=== PATIENT | male | born 1960 | race Caucasian/White ===

== ENCOUNTER → 2017-04-26 11:51 | Outpatient (CLI) | payer MEDICAID ==
[2015-11-25 11:24] VITALS: BMI 40.8
[~2017-04-26 11:51] MED LIST: GEODON80 MG PO; HCTZ25 MG PO; NORVASC10 MG PO; TRAZODONE HCL50 MG PO; ZESTRIL40 MG PO; ZOCOR10 MG PO
== END ==
LOC: D.LABREF 11:51
DX: R31.9 Hematuria, unspecified (principal)

== ENCOUNTER 2017-05-24 03:07 | Emergency (ER) | payer MEDICAID ==
[2015-11-25 11:24] VITALS: BMI 40.8
== END 2017-05-25 03:30 | disposition home or self-care (01) ==
LOC: D.ER 03:07
DX: S46.912A Strain of unspecified muscle, fascia and tendon at shoulder and upper arm level, left arm, initial encounter (principal); X58.XXXA Exposure to other specified factors, initial encounter; Y93.89 Activity, other specified; Y92.89 Other specified places as the place of occurrence of the external cause; F17.200 Nicotine dependence, unspecified, uncomplicated; I10 Essential (primary) hypertension

== ENCOUNTER 2017-07-26 05:54 | Day surgery (SDC) | payer MEDICAID ==
[~2017-07-26 05:54] MED LIST changes: +CYCLOBENZAPRINE10 MG PO
[2017-07-26 07:36] LABS: HEMATOCRIT 49.1 % (42.0-54.0); HEMOGLOBIN 17.6 g/dL (13.5-17.5); MCH 33.5 pg (26.0-34.0); MCHC 35.8 g/dL (31.0-37.0); MCV 93.3 fL (80.0-100.0); MEAN PLATELET VOLUME 9.8 fL (7.4-10.4); RBC 5.26 10x6/uL (4.20-6.10); RDW 12.6 % (11.5-14.5); WBC 8.1 10x3/uL (4.8-10.8)
[2017-07-26 07:37] LABS: CALC OSMOLALITY 277 mosm/kg (275-300); CARBON DIOXIDE 27.3 mmol/L (21.0-32.0); CHLORIDE - SERUM 104 mmol/L (98-107); CREATININE - SERUM 0.7 mg/dL (0.6-1.3); GLUCOSE 121 mg/dL (74-106); POTASSIUM - SERUM 3.7 mmol/L (3.5-5.1); SODIUM 139 mmol/L (136-145); UREA NITROGEN 10 mg/dL (7-18); eGFR NON AFRICAN AMERICAN > 90 mL/min (90-120)
[2017-07-26 07:43] VITALS: BP 142/85; BMI 40.8
--- NOTE | 2017-07-26 11:59 | OP ---
PATIENT NAME: PRIYA MILNER MEDICAL RECORD: [id number] :60 LOCATION:D.OPS ADMISSION DATE: SURGEON: BUBBA EID MD DATE OF OPERATION: 07/26/2017 SURGEON: Bubba Eid MD ANESTHESIA: MAC by Modesto Bui CRNA. PREOPERATIVE DIAGNOSIS: Microscopic hematuria. POSTOPERATIVE DIAGNOSIS: Obstructive BPH causing microscopic hematuria. PROCEDURE: Cystoscopy. FINDINGS: Obstructive BPH with trilobar hyperplasia. There is a large median lobe infiltrating into the trigone of the bladder. Trabeculated bladder with no bladder tumors. Single ureteral orifices bilaterally. CLINICAL HISTORY: This is a 56-year-old male, who is a smoker, 1 pack per day since age 37. He was discovered to have microscopic hematuria by Dr. Bryan Harris. He had a workup including a CT scan of the abdomen and pelvis, which was normal. Urine cytology was benign. He comes now to have cystoscopy. He is not allergic to any medications and he was given Ancef 1 gram firestop/containment worker to the OR. DESCRIPTION OF PROCEDURE: The patient was given IV sedation. He was placed in dorsal lithotomy position and prepped and draped. A 17-Mauritian cystoscope was used. We initially used a 30-degree lens to get into the bladder. The visualization with 30-degree lens was rather poor as the lens itself was defective. We therefore switched to the 70-degree lens. He has quite significant vascularity in the trigone of the bladder. No tumors were seen. Single ureteral orifices were seen on each side. Going back, he has quite significant BPH with obstruction. No urethral lesions were seen. I will get the patient started on finasteride and tamsulosin. I will see him in followup in 1 month to see how is tolerating the medication. TRANSINT:[id number] Voice Confirmation ID: [id number] DOCUMENT ID: [id number] BUBBA EID MD at 1159 CC: [id number] DICTATION DATE: 07/26/17 1039 MAINTENANCE DEPARTMENT MANAGER: 07/26/17 1136 [facility] 07/26/17 [place] [id number] [place] [id number]
== END 2017-07-26 11:30 | disposition home or self-care (01) ==
LOC: D.OPS 05:54 → D.PAN 08:15 → D.OPS 08:30
PROVIDERS: Anesthesiology
DX: R31.29 Other microscopic hematuria (principal); N40.0 Benign prostatic hyperplasia without lower urinary tract symptoms; F17.200 Nicotine dependence, unspecified, uncomplicated; I10 Essential (primary) hypertension; Z01.812 Encounter for preprocedural laboratory examination

== ENCOUNTER 2017-12-08 05:00 | Emergency (ER) | payer MEDICAID | END 2017-12-08 06:32 | disposition home or self-care (01) | LOC: D.ER 05:00 | DX: M79.671 Pain in right foot (principal); I10 Essential (primary) hypertension ==

== ENCOUNTER 2018-06-06 09:54 | Emergency (ER) | payer MEDICAID ==
[~2018-06-06] VITALS: Ht 177.8 cm; Wt 121.8 kg
[2018-06-06 09:59] VITALS: Ht 177.8 cm; Wt 121.8 kg
[2018-06-06] MEDS ORDERED: EC-NAPROSYN500 MG PO (10:44)
[2018-06-06 10:58] VITALS: BP 122/068
== END 2018-06-06 11:00 | disposition home or self-care (01) ==
LOC: D.ER 09:54
DX: S83.91XA Sprain of unspecified site of right knee, initial encounter (principal); X50.1XXA Overexertion from prolonged static or awkward postures, initial encounter; Y93.89 Activity, other specified; Y92.019 Unspecified place in single-family (private) house as the place of occurrence of the external cause; M25.461 Effusion, right knee; I10 Essential (primary) hypertension; F17.200 Nicotine dependence, unspecified, uncomplicated

== ENCOUNTER 2018-07-23 05:20 | Day surgery (SDC) | payer MEDICAID ==
[2018-07-22 10:16] LABS: HEMOGLOBIN 16.7 g/dL (13.5-17.5); MCH 33.4 pg (26.0-34.0); MCHC 36.3 g/dL (31.0-37.0); RDW 12.4 % (11.5-14.5); WBC 7.7 10x3/uL (4.8-10.8)
[2018-07-22 10:35] LABS: CALC OSMOLALITY 281 mosm/kg (275-300); CALCIUM 8.3 mg/dL (8.5-10.1); CARBON DIOXIDE 27.5 mmol/L (21.0-32.0); CHLORIDE - SERUM 106 mmol/L (98-107); CREATININE - SERUM 0.7 mg/dL (0.6-1.3); GLUCOSE 104 mg/dL (74-106); POTASSIUM - SERUM 3.7 mmol/L (3.5-5.1); SODIUM 142 mmol/L (136-145); UREA NITROGEN 10 mg/dL (7-18); eGFR NON AFRICAN AMERICAN > 90 mL/min (90-120)
[~2018-07-23] VITALS: Ht 177.8 cm; Wt 121.1 kg
--- NOTE | ~2018-07-23 | OP ---
PATIENT NAME: PRIYA MILNER MEDICAL RECORD: [id number] :60 [facility] DATE: SURGEON: BUBBA EID MD DATE OF OPERATION: 07/23/2018 SURGEON: Bubba Eid MD ANESTHESIA: TIVA by Jessica Grimaldo CRNA. DIAGNOSIS: Obstructive BPH. PROCEDURE: Cystoscopy, UroLift procedure with 5 units placed, 2 on the left lateral lobe and 3 on the right lateral lung. FINDINGS: Bilateral lateral lobe obstructive BPH. Right lobe has an extra nodule. BLOOD LOSS: Minimal. CLINICAL HISTORY: This is a 57-year-old male with obstructive BPH. He had multiple side effects with the different medications for BPH. Tamsulosin made him dizzy. He did not like finasteride for an unspecified reason. He was put on dutasteride and doxazosin and he developed hives and blisters from the medications. Therefore, we will require something more invasive than just medication. His IPSS score is 10 and his acute quality of life score is 1. He has nocturia times 3 and daytime urinary frequency. He comes to have the UroLift procedure done. He is not allergic to any medications. He was given Ancef IV nurse infection control to the OR. DESCRIPTION OF PROCEDURE: The patient was given IV sedation. He was placed in dorsal lithotomy position and prepped and draped. Lidocaine jelly was inserted into the urethra. A 20-Tongan UroLift cystoscope was introduced with a 30-degree lens. He has a bit of meatal stenosis and we used male sounds to dilate the urethral meatus to 24-Tongan in order to introduce the scope. Penile urethra shows no strictures. Prostatic urethra shows bilateral lateral lobe hyperplasia. Going into the bladder, we could see single ureteral orifices on each side. The bladder was mildly trabeculated. No bladder tumors were seen. We then removed the visual obturator and introduced a UroLift unit into the scope. The scope was then turned laterally so that it was facing the left side. Coming back past the bladder neck to about 1.5-2 cm distal to the bladder neck, we started applying pressure on to the left lateral lobe surface with the unit. The needle was then fired and then the suture was clipped and released with the device. This resulted in good retraction of the left lateral lobe. The unit was then reintroduced back into the bladder and the unit was removed. Another unit was introduced and we performed a similar procedure on the right lateral lobe near the bladder neck. This unit was then put back into the bladder and removed. A third unit was used and this was now placed in the left lateral lobe close to the verumontanum. We visualized the verumontanum and then just proximal to the verumontanum, we introduced the unit and fired it. A fourth unit was placed near the verumontanum on the right lateral lobe. This still left a bump on the asymmetrical right lateral lobe. We therefore went into the mid lateral lobe and introduced a fifth unit to pull down the bump. At the end of the procedure, he had excellent urethral channel all the way from the verumontanum all the way to the bladder neck. No units were at the verumontanum or at the bladder neck level. The patient had some fluid left in the bladder so OPERATIVE REPORT [id number] PRIYA MILNER that he can void prior to leaving for home today. I will see him in followup in 3 weeks' time. TRANSINT:[id number] Voice Confirmation ID: [id number] DOCUMENT ID: [id number] BUBBA EID MD at 0926 CC: [id number] DICTATION DATE: 07/23/18813 BALANCE WHEEL SCREW HOLE TAPPER: 07/23/18904 [facility] [address] [place] [address]
[~2018-07-23 05:20] MED LIST changes: +EC-NAPROSYN500 MG PO
[2018-07-23 06:28] VITALS: BP 138/84; Ht 177.8 cm; Wt 121.1 kg
== END 2018-07-23 09:50 | disposition home or self-care (01) ==
LOC: D.OPS 05:20 → D.PAN 07:30 → D.OPS 09:50
PROVIDERS: Anesthesiology
DX: N40.1 Benign prostatic hyperplasia with lower urinary tract symptoms (principal); N13.8 Other obstructive and reflux uropathy; R35.0 Frequency of micturition; R35.1 Nocturia; Z01.812 Encounter for preprocedural laboratory examination

== ENCOUNTER → 2018-08-05 07:32 | Outpatient (CLI) | payer MEDICAID ==
[2018-07-23 06:28] VITALS: BMI 38.3
== END | disposition home or self-care (01) ==
LOC: D.MRI 07:32
DX: M54.5 Low back pain (principal)

== ENCOUNTER 2018-10-17 08:51 | Emergency (ER) | payer MEDICAID ==
[2018-07-23 06:28] VITALS: BMI 38.3
== END 2018-10-17 09:19 | disposition left against medical advice (07) ==
LOC: D.ER 08:51
DX: M79.673 Pain in unspecified foot (principal)

== ENCOUNTER 2019-08-23 04:22 | Emergency (ER) | payer MEDICAID ==
[~2019-08-23] VITALS: Ht 177.8 cm; Wt 98.6 kg
[2019-08-23 04:26] VITALS: Ht 177.8 cm; Wt 98.6 kg
[2019-08-23 04:55] LABS: APPEARANCE CLEAR (CLEAR); BILIRUBIN NEGATIVE (NEGATIVE); COLOR YELLOW (YELLOW); GLUCOSE NEGATIVE (NEGATIVE); KETONE NEGATIVE (NEGATIVE); NITRITE NEGATIVE (NEGATIVE); PROTEIN NEGATIVE (NEGATIVE); SPECIFIC GRAVITY 1.015 (1.005-1.020); UROBILINOGEN NORMAL (NORMAL)
[2019-08-23 06:07] VITALS: BP 142/81
== END 2019-08-23 06:10 | disposition home or self-care (01) ==
LOC: D.ER 04:22
PROVIDERS: Family Medicine
DX: G89.29 Other chronic pain (principal); M16.12 Unilateral primary osteoarthritis, left hip; M48.07 Spinal stenosis, lumbosacral region; M54.16 Radiculopathy, lumbar region; I10 Essential (primary) hypertension; Z72.0 Tobacco use

== ENCOUNTER 2019-09-13 12:47 | Emergency (ER) | payer MEDICAID ==
[~2019-09-13] VITALS: Ht 177.8 cm; Wt 124.5 kg
[2019-09-13 12:51] VITALS: Ht 177.8 cm; Wt 124.5 kg
[2019-09-13] MEDS ORDERED: CLEOCIN HCL300 MG PO (13:41)
[2019-09-13 14:02] VITALS: BP 148/78
== END 2019-09-13 14:03 | disposition home or self-care (01) ==
LOC: D.ER 12:47
DX: K02.9 Dental caries, unspecified (principal); S02.5XXA Fracture of tooth (traumatic), initial encounter for closed fracture; K04.7 Periapical abscess without sinus; I10 Essential (primary) hypertension; Z72.0 Tobacco use

== ENCOUNTER → 2020-01-29 08:30 | Outpatient (CLI) | payer BC ==
[2019-09-13 12:51] VITALS: BMI 39.3
[~2020-01-29 08:30] MED LIST changes: +CLEOCIN HCL300 MG PO
== END | disposition home or self-care (01) ==
LOC: D.HCCECHO 08:30
PROVIDERS: ATTEND Internal Medicine Cardiovascular Disease
DX: R01.1 Cardiac murmur, unspecified (principal); I20.9 Angina pectoris, unspecified

== ENCOUNTER → 2020-02-03 09:45 | Outpatient (CLI) | payer MEDICAID ==
[2019-09-13 12:51] VITALS: BMI 39.3
== END | disposition home or self-care (01) ==
LOC: D.MRI 01-19 10:30
PROVIDERS: ATTEND Orthopaedic Surgery
DX: S83.231A Complex tear of medial meniscus, current injury, right knee, initial encounter (principal)

== ENCOUNTER 2020-02-10 11:36 | Outpatient (CLI) | payer MEDICAID ==
[~2020-02-10] VITALS: Ht 177.8 cm; Wt 126.3 kg
--- NOTE | ~2020-02-10 | HEMODYNAMI ---
PATIENT:PRIYA MILNER MEDICAL RECORD: [id number] : 60 LOCATION:[facility] ADMISSION DATE: 02/10/20 Generatedon:02/10/202013:39 Patient name: PRIAY MILNER Patient #: [id number] SSN: [id number] : 1960 Date of study: 02/10/2020 Page: Of Hemodynamic Procedure Report Patient Data Patient Demographics Procedure consent was obtained First Name: PRIYA Gender: Male Last Name: ALF : 1960 Middle Initial: A Age: 59 year(s) Patient #: [id number] Race: Unknown SSN: [id number] Additional ID: [id number] Contact details [address]: [address] [place] [address] [place] State: [place] City: [facility] Zip code: [address] Past Medical History Allergies: No known allergies Admission Admission Data Admission Date: 02/10/2020 Admission Time: 11:36 Arrival Date: 02/10/2020 Arrival Time: 0:00 Height (in.): 70 BSA: 2.4 (m2) Height (cm.): 177.8 BMI: 39.86 (kg/m2) Weight (lbs.): 277.78 Weight (kg.): 126 Lab Results Lab Result Date: 02/10/2020 Lab Result Time: 0:00 Biochemistry Name Units Result Min Max BUN mg/dl 12 --(-*--)-- 7 18 Creatinine mg/dl 0.8 --(-*--)-- 0.6 1.3 eGFR ml/min 90 --(*---)-- 90 120 NONAFRICAN CBC Name Units Result Min Max Hematocrit % 50.5 --(--*-)-- 42 54 Hemoglobin g/dl 18 --(----)*- 13.5 17.5 Procedure Procedure Types Cath Procedure Diagnostic Procedure C [facility] w/Coronaries Sedation Charges Moderate Sedation up to 15 minutes Procedure Description Procedure Date Procedure Date: 02/10/2020 Procedure Start Time: 13:21 Procedure End Time: 13:36 Procedure Staff Name Function Sophia Malave RT Monitor Bennett Ritchie RT Scrub Malcolm Zuñiga RN Nurse Xavi Camacho MD Performing Physician Procedure Data Cath Procedure Fluoroscopy Diagnostic fluoroscopy Total fluoroscopy Time: 3.4 time: 3.4 min min Diagnostic fluoroscopy Total fluoroscopy dose: dose: 1171 mGy 1171 mGy Contrast Material Contrast Material Type Amount (ml) Isovue 300 88 Entry Location Entry Primary Successful Side Size Upsize Upsize Entry Closure Lira ccessful Closure Location (Fr) 1 (Fr) 2 (Fr) Remarks Device Remarks Radial Right 6 Fr Mechanical artery Short Compression Estimated blood loss: 5 ml Diagnostic catheters Device Type Used For End Catheter Placement DIAGNOSTIC [place] 110cm 5 Procedure Fr catheter ([id number]) DIAGNOSTIC AR MOD 5Fr Procedure Catheter ([id number]) Procedure Complications No complications Procedure Medications Medication Administration Route Dosage 0.9% NaCl I.V. 100 ml/hr Oxygen etCO2 Nasal cannula 2 l/min Heparin Flush Bag added to field 2 bags (1000units/500ml NS) Lidocaine 2% added to field 20 Radial Cocktail added to field 1 syringe (Verapamil 2mg/Nitro 400mcg/Heparin 1500units) Radial Cocktail I.A. 1 syringe (Verapamil 2mg/Nitro 400mcg/Heparin 1500units) Versed I.V. 2 mg Fentanyl I.V. 100 mcg Hemodynamics Rest BSA: 2.4 (m2) O2 Consumption: Estimated: 295.39 (ml/min) O2 Consumption indexed: Estimated:123.08 (ml/min/m) Heart Rate: 84 (bpm) Pressure Samples Time Site Value (mmHg) Purpose Heart Use Rate(bpm) 13:25 LV 120/42,9 Snapshot 51 13:25 LV 120/47,9 Snapshot 45 Gradients Valve Time Site Site Mean SEP/DFP Peak To Heart Use 1 2 (mmHg) (sec/min) Peak Rate (mmHg) (bpm) Aortic 13:26 LV AO 62 Snapshots Pre Cath Intra NCS Post Cath Vital Signs Time Heart Resp SPO2 etCO2 NIBP (mmHg) Rhythm Pain Sedation Rate (ipm) (%) (mmHg) Status Level (bpm) 13:12:00 70 93 91 12.7 139/95(118) A-Fib 0 (11) 10(A) , No pain 13:16:12 82 10 94 36.6 127/92(116) A-Fib 0 (11) 10(A) , No pain 13:20:18 73 18 90 32.1 131/94(120) A-Fib 0 (11) 10(A) , No pain 13:25:07 88 19 89 30.6 121/90(102) A-Fib 0 (11) 10(A) , No pain 13:29:10 83 17 88 16.4 126/95(109) A-Fib 0 (11) 10(A) , No pain 13:33:16 80 18 90 32.8 119/95(107) A-Fib 0 (11) 10(A) , No pain Medications Time Medication Route Dose Verified Delivered Reason Notes Effectiveness by by 13:16:23 0.9% NaCl I.V. 100 Malcolm Malcolm Per ml/hr Yogesh Zuñiga physician RN RN 13:16:33 Oxygen etCO2 2 l/min Malcolm Malcolm for low 02 Nasal Lorigan Yogesh sats cannula RN RN 13:16:46 Heparin Flush added 2 bags Malcolm Malcolm used for Bag to Yogesh Zuñiga procedure (1000units/500ml field ROCCO VALIENTE NS) 13:16:57 Lidocaine 2% added 20ml Malcolm Malcolm for local to vial Lorigan Yogesh anesthetic field VALIENTE RN 13:17:08 Radial Cocktail added 1 Malcolm Malcolm used for (Verapamil to syringe Bernardaigan Lorigan procedure 2mg/Nitro field ROCCO VALIENTE 400mcg/Heparin 1500units) 13:20:42 Versed I.V. 2 mg Malcolm Malcolm for sedation Yogesh Zuñiga RN, RN 13:20:51 Fentanyl I.V. 100 mcg Malcolm Malcolm for sedation Yogesh Zuñiga RN, RN 13:25:26 Radial Cocktail I.A. 1 Malcolm Xavi for (Verapamil syringe Lorigan Janice vasodilation 2mg/Nitro ROCCO LONGO 400mcg/Heparin 1500units) Procedure Log Time Note 12:55:10 Malcolm Zuñiga RN sent for patient. Start room use. 13:01:22 Informed consent obtained and on chart 13:03:03 Procedure Status Elective Heart Cath (OP). 13:03:05 Time tracking: Regular hours (M-F 7:00 - 5:00) 13:03:07 Plan of Care:Hemodynamics will remain stable., Cardiac rhythm will remain stable., Comfort level will be maintained., Respiratory function will remain adequate., Patient/ family verbilizes understanding of procedure., Procedure tolerated without complication., Recovers from procedure without complications.. 13:03:57 Patient received from Pre/Post Procedure Room to CCL 2 Alert and oriented. Tansferred to table in Supine position. 13:03:58 Warm blankets applied, and mejia hugger turned on for patient comfort. 13:03:59 Correct patient and procedure confirmed by team. 13:03:59 ECG and BP/O2 sat monitors applied to patient. 13:05:02 H&P Date Dictated: 02/05/2020 Within 30 days and on chart., H&P Addendum completed by physician on day of procedure. (MUST COMPLETE FOR ALL OUTPATIENTS). 13:05:30 Patient allergic to No known allergies 13:05:56 Lab Result : BUN 12 mg/dl 13:05:56 Lab Result : Creatinine 0.8 mg/dl 13:05:56 Lab Result : eGFR NONAFRICAN 90 ml/min 13:05:57 Lab Result : Hemoglobin 18 g/dl 13:05:57 Lab Result : Hematocrit 50.5 % 13:06:13 Patient Weight : 277.78 lbs 13:06:16 Patient Height : 70 inches 13:06:24 Arrival Date: 02/10/2020 12:00:00 AM 13:11:00 Vital chart was started 13:11:06 Full Disclosure recording started 13:11:06 Pre-procedure instructions explained to patient. 13:11:07 Pre-op teaching completed and patient verbalized understanding. 13:11:11 Family in patients room. 13:11:12 Patient NPO since Midnight. 13:11:14 Is the patient allergic to Iodine/contrast media? No. 13:11:15 Is patient on blood thinner?No 13:11:16 Patient diabetic? No. 13:11:19 Previous problem with sedation/anesthesia? No ? 13:11:21 Snore? Yes 13:11:22 Sleep apnea? No 13:11:23 Deviated septum? No 13:11:24 Opens mouth fully? Yes 13:11:26 Airway obstruction? No ? 13:11:28 Sticks out tongue? Yes 13:11:30 Dentures? No ? 13:11:45 Pre procedure: right dorsailis pedis pulse 2+ Normal; easily identifiable; not easily obliterated 13:11:47 Modified Garrett's test Ulnar < 7 seconds 13:11:49 Patient pain scale 0/10 ?. 13:12:33 IV patent on arrival in left hand with 0.9% NaCl at [facility]. 13:12:36 Lab results completed and on chart. 13:12:40 Right Radial & Right Groin area was prepped with chlora-prep and draped in sterile fashion 13:12:41 Alarms reviewed by R. N. 13:12:42 Sharps counted by scrub and verified by R.N. 13:16:23 0.9% NaCl 100 ml/hr I.V. was administered by Malcolm Zuñiga RN; Per physician; Verbal order read back and verified. 13:16:33 Oxygen 2 l/min etCO2 Nasal cannula was administered by Malcolm Zuñiga RN; for low 02 sats; Verbal order read back and verified. 13:16:46 Heparin Flush Bag (1000units/500ml NS) 2 bags added to field was administered by Malcolm Zuñiga RN; used for procedure; Verbal order read back and verified. 13:16:57 Lidocaine 2% 20ml vial added to field was administered by Malcolm Zuñiga RN; for local anesthetic; Verbal order read back and verified. 13:17:08 Radial Cocktail (Verapamil 2mg/Nitro 400mcg/Heparin 1500units) 1 syringe added to field was administered by Malcolm Zuñiga RN; used for procedure; Verbal order read back and verified. 13:18:49 Baseline sample Acquired. 13:18:54 Rhythm: atrial fibrillation 13:19:03 --------ALL STOP TIME OUT------ 13:19:03 Final Timeout: patient, procedure, and site verified with staff and physician. All members of the team are in agreement. 13:19:05 Right Radial & Right Groin site verified by team. 13:19:08 Fire Safety Assessment: A--An alcohol-based skin anteseptic being used preoperatively., C--Open oxygen or nitrous oxide is being used., D--An ESU, laser, or fiber-optic light is being used. 13:19:17 Physical assessment completed. ASA score P 2 - A patient with mild systemic disease as per Xavi Camacho MD. 13:19:23 1) 90+ Normal kidney functon but urine findings or structural abnormalities or genetic trait point to kidney disease. 13:19:25 Maximum allowable contrast dose (3.7 X eGFR X 0.75)250 ml. 13:19:29 Sedation plan: IV Moderate Sedation Medication:Versed, Fentanyl 13:20:16 Use device set Radial Dx or PCI 13:20:18 ACIST Syringe (20793) opened to sterile field. 13:20:19 Bag Decanter (2001S) opened to sterile field. 13:20:19 ACIST Hand Control (40593) opened to sterile field. 13:20:20 ACIST Manifold (62750) opened to sterile field. 13:20:20 Tegaderm 4 x 4 (1626W) opened to sterile field. 13:20:21 Medline Cath Pack (QPQK59512) opened to sterile field. 13:20:22 MBrace Wrist Support (319458537) opened to sterile field. 13:20:23 EMERALD Guide Wire (580-964) opened to sterile field. 13:20:24 SHEATH 6FR RAIN (5441683) opened to sterile field. 13:20:42 Versed 2 mg I.V. was administered by Malcolm Zuñiga RN; for sedation; Verbal order read back and verified. 13:20:44 Procedure started. 13:20:51 Fentanyl 100 mcg I.V. was administered by Malcolm Zuñiga RN; for sedation; Verbal order read back and verified. 13:21:42 Local anesthetic to right radial artery with Lidocaine 2% by Xavi Camacho MD.INITIAL ACCESS ONLY 13:22:47 A 6 Fr Short sheath was inserted into the Right Radial artery 13:24:07 Zero performed for pressure channel P1 13:24:11 Zero performed for pressure channel P1 13:24:13 Zero performed for pressure channel P1 13:25:17 A DIAGNOSTIC [place] 110cm 5 Fr catheter (288317) was advanced over the wire and used for Procedure. 13:25:26 Radial Cocktail (Verapamil 2mg/Nitro 400mcg/Heparin 1500units) 1 syringe I.A. was administered by Xavi Camacho MD; for vasodilation; Verbal order read back and verified. 13:25:29 LV gram done using SEE 13:25:31 Injector settings: Ml/sec: 5, Volume: 15, 13:25:53 LV hemodynamics recorded. 13:26:05 EF : 30 % 13:26:54 LCA angiography performed. 13:28:43 Catheter exchanged over wire. 13:29:10 A DIAGNOSTIC AR MOD 5Fr Catheter ([id number]) was advanced over the wire and used for Procedure. 13:30:47 RCA angiography performed. 13:30:50 Catheter removed. 13:31:21 Procedure ended.(Physican Out) 13:32:25 TR BAND Large ([id number]) opened to sterile field. 13:32:28 Sheath removed intact; hemostasis achieved with Mechanical Compression to the Right Radial artery. 13:32:36 Fluoroscopy time 03.40 minutes. 13:34:26 Fluoroscopy dose: 1171 mGy 13:34:26 Flurop Dose total: 1171 13:34:31 Dose Area Product 30085 mGy/cm. 13:34:36 Contrast amount:Isovue 300 88ml. 13:34:41 Maximum allowable dose exceeded? No. 13:34:43 Sharps counted by scrub and verified by R.N. 13:34:47 [place] band inflated with 11cc of air. 13:35:01 Post-procedure physical assessment completed. ASA score P 2 - A patient with mild systemic disease as per Xavi Camacho MD. 13:35:05 Post procedure rhythm: unchanged. 13:35:18 Estimated blood loss: 5 ml 13:35:20 Post procedure instruction explained to patient.Patient verbalizes understanding. 13:35:20 Patient needs reinforcement of post procedure teaching. 13:35:46 Procedure type changed to Cath procedure, Diagnostic procedure, C, [facility] w/Coronaries, Sedation Charges, Moderate Sedation up to 15 minutes 13:36:03 Procedure and supply charges have been captured, reviewed, submitted and are correct. 13:36:05 Procedure Complication : No complications 13:36:07 Vital chart was stopped 13:36:08 [facility] Findings: mild to moderate CAD (<70%) 13:36:09 Operative report dictated upon procedure completion. 13:36:10 See physician's report for complete and final results. 13:36:12 Report given to Pre/Post Procedure Room. 13:36:15 Patient transfered to Pre/Post Procedure Room with Bed. 13:36:17 Procedure ended. 13:36:17 Full Disclosure recording stopped 13:36:36 End room use (Document Last) 13:37:02 End room use (Document Last) 13:38:05 End room use (Document Last) Device Usage Item Name Manufacture Quantity Catalog Hospital Part Current Minima l Lot# / Number Charge Number Stock Stock Serial# Code ACIST Acist 1 20254 827855 182343 874550 20 Syringe Medical (79085) Systems Inc Bag Microtek 1 2001S 967828 05473 811911 5 Decanter Medical Inc. () ACIST Hand Acist 1 89515 221516 166150 141810 5 Control Medical (78691) Systems Inc ACIST Acist 1 22873 069598 710719 495291 5 Manifold Medical (16839) Systems Inc Tegaderm 4 3M 1 1626W 020224 626593 708801 5 x 4 (1626W) Medline Medline 1 [id number] 333445 19682 217039 5 Cath Pack ([id number]) MBrace Advanced 1 140-0250-00 622822 34154 077378 5 Wrist Vascular Support Dynamics ([id number]) EMERALD Cardinal 1 502-455 237850 581564 267952 5 Guide Wire Health (502455) SHEATH 6FR Cardinal 1 9402363 565[address] 088[address]27 857795 5 [facility] Health (5985468) DIAGNOSTIC Terumo 1 405013 719180 611512 759536 5 [place] 110cm 5 Fr catheter (866547) DIAGNOSTIC Cardinal 1 [id number] 626385 495210 953743 15 AR MOD 5Fr Health Catheter (082076K) TR BAND Terumo 1 KPH36-HCC 366357 823008 869078 40 Large (QQU65WPM) Signature Audit [place] Stage Time Signature Unsigned Intra-Procedure 02/10/2020 Sophia Malave 1:37:02 PM RT(R) Intra-Procedure 02/10/2020 Malcolm 1:38:05 PM Yogesh VALIENTE Intra-Procedure 02/10/2020 Xavi Brand 1:39:30 PM Андрей LONGO Signatures Monitor : Sophia Malave Signature : RT Date : Time : Nurse : Malcolm Lorigan Signature : RN Date : Time : Performing Physician : Signature : Xavi Janice MD Date : Time : [place] [address] [place] [address]
[2020-02-10] MEDS ORDERED: BAYER CHEWABLE81 MG PO (11:55)
[2020-02-10] MEDS ORDERED: HCTZ25 MG PO (11:56)
[2020-02-10] MEDS ORDERED: COREG 3.1253.125 MG PO (11:56)
[2020-02-10] MEDS ORDERED: ZOCOR10 MG PO (11:56)
[2020-02-10 12:32] LABS: BASOPHILS 0.4 % (0-2); EOSINOPHILS 1.2 % (0-7); HEMATOCRIT 50.5 % (42.0-54.0); IMMATURE GRANULOCYTES 0.4 % (0-5); LYMPHOCYTES 19.2 % (15-50); MCH 32.7 pg (26.0-34.0); MCHC 35.6 g/dL (31.0-37.0); MCV 91.8 fL (80.0-100.0); MEAN PLATELET VOLUME 9.6 fL (7.4-10.4); MONOCYTES 7.6 % (2-11); NEUTROPHILS 71.2 % (40-80); PLATELET COUNT 234 10x3/uL (130-400); RDW 12.3 % (11.5-14.5); WBC 7.3 10x3/uL (4.8-10.8)
[2020-02-10 12:39] VITALS: BP 150/97; Ht 177.8 cm; Wt 126.3 kg
[2020-02-10 12:44] LABS: ALT (SGPT) 18 U/L (10-68); CALC OSMOLALITY 277 mosm/kg (275-300); CALCIUM 8.3 mg/dL (8.5-10.1); CHLORIDE - SERUM 105 mmol/L (98-107); CHOL - HDL RATIO 3.6 ratio (2.3-4.9); CHOLESTEROL, TOTAL 114 mg/dL (0-200); CREATININE - SERUM 0.8 mg/dL (0.6-1.3); GLUCOSE 99 mg/dL (74-106); HDL CHOLESTEROL 32 mg/dL (32-96); LDL CHOLESTEROL 71 mg/dL (0-100); LDL-HDL RATIO 2.2 ratio (1.5-3.5); POTASSIUM - SERUM 3.4 mmol/L (3.5-5.1); SODIUM 139 mmol/L (136-145); TRIGLYCERIDE 58 mg/dL (30-200); UREA NITROGEN 12 mg/dL (7-18); eGFR NON AFRICAN AMERICAN > 90 mL/min (90-120)
--- NOTE | 2020-02-10 13:45 | NUR ---
PT REC'D TO ROOM 4 VIA STRETCHER FROM DIALYSIS EQUIPMENT TECHNICIAN. MONITORS ESTAB. PT AWAKE AND ORIENTED. SEE LEGAL SERVICES MANAGER, ALARMS ON AND C/L IN REACH.
[2020-02-10] MEDS ORDERED: ALDACTONE25 MG PO (13:54)
--- NOTE | 2020-02-10 14:00 | NUR ---
R WRIST SITE C/D/I, NO S/S BLEEDING OR HEMATOMA. PULSES PALP. CM - CAF.
--- NOTE | 2020-02-10 14:15 | NUR ---
R WRIST SITE C/D/I, NO S/S BLEEDING OR SWELLING. SANDWICH TRAY PROVIDED. ALARMS ON AND C/L IN REACH.
--- NOTE | 2020-02-10 14:30 | NUR ---
R WRIST SITE C/D/I, VSS, PT WATCHING TV.
--- NOTE | 2020-02-10 14:42 | NUR ---
5CC AIR REMOVED FROM TR BAND, SPOKE WITH DAUGHTER, D/C INSTRUCTIONS REVIEWED. PLAN TO D/C PT AT 1530.
--- NOTE | 2020-02-10 15:00 | NUR ---
ALL AIR REMOVED FROM TR BAND, NO S/S BLEEDING. VSS.
--- NOTE | 2020-02-10 15:15 | NUR ---
R WRIST SITE C/D/I, Z BAND REMOVED AND DSG APPLIED. PIV D/C'D INTACT, DSG APPLIED. ALL D/C INSTRUCTIONS REVIEWED WITH PT, INCLUDING RESTRICTIONS, PRECAUTIONS AND NEW MEDICATION - ALDACTONE PT TEACHING SHEET SENT WITH PATIENT.
--- NOTE | 2020-02-10 15:23 | NUR ---
PT UP AND DRESSED, TO BR INDEPENDENTLY. WAITING FOR DAUGHTER TO PICK HIM UP.
--- NOTE | 2020-02-10 15:35 | NUR ---
PT DC'D VIA TO PRIVATE VEHICLE WITH DAUGHTER. PT HAS ALL BELONGINGS AND PAPERWORK (PRESCRIPTION).
--- NOTE | 2020-02-12 08:04 | OP ---
PATIENT NAME: PRIYA MILNER MEDICAL RECORD: [id number] :60 LOCATION:D.CAT ADMISSION DATE: SURGEON: RAMONA LIND MD DATE OF OPERATION: 02/10/2020 PROCEDURE: Left heart catheterization, selective coronary angiography, right radial approach. CATHETERS: Radial sheath, [place] catheter. The procedure was well tolerated. The patient returned to the edwards. Sheath was removed. TR band was placed. FINDINGS: Left ventriculography in 30-degree SEE view shows global hypokinesis with reduced EF, estimated EF 40%. CORONARY ANATOMY: LEFT MAIN: Left main is free of disease. LAD: Free of disease in the diagonal system. CIRCUMFLEX: Free of disease in the marginal system. RIGHT CORONARY ARTERY: Dominant artery, gives rise to PDA, free of disease. IMPRESSION: Nonischemic cardiomyopathy. The patient is currently on a beta blockade, MARCO inhibitor. We will add Aldactone to his underlying medical regime. We will need DOAC as an outpatient for his atrial fibrillation post-procedure as well. TRANSINT:[id number] Voice Confirmation ID: [id number] DOCUMENT ID: [id number] RAMONA LIND MD at 0804 CC: [id number] DICTATION DATE: 02/10/20 1339 STRAIGHTEDGE WORKER: 02/10/205 DEP CLI 02/10/20 [place] [id number] [place] [address]
== END 2020-02-10 15:35 | disposition home or self-care (01) ==
LOC: D.CATH 11:36
PROVIDERS: ATTEND Internal Medicine Interventional Cardiology
DX: I10 Essential (primary) hypertension (principal); E78.5 Hyperlipidemia, unspecified; I20.9 Angina pectoris, unspecified; I48.91 Unspecified atrial fibrillation; Z72.0 Tobacco use; I42.8 Other cardiomyopathies

== ENCOUNTER 2020-02-29 05:35 | Emergency (ER) | payer MEDICAID ==
[~2020-02-29] VITALS: Ht 177.8 cm; Wt 124.5 kg
[~2020-02-29 05:35] MED LIST changes: +ALDACTONE25 MG PO; +BAYER CHEWABLE81 MG PO; +COREG 3.1253.125 MG PO
[2020-02-29 05:40] VITALS: Ht 177.8 cm; Wt 124.5 kg
[2020-02-29 06:18] VITALS: BP 146/89
--- NOTE | 2020-02-29 06:38 | NUR ---
DR. PERES NOTIFIED AND REVIEWED PT'S BEHAVIOR AND ASSESSMENT RESULTS. PT IS A LOW RISK PER DR. PERES. DR. PERES STATED TO GIVE RESOURCES TO PT AT TIME OF DISCHARGE. NO FURTHER ORDERS AT THIS TIME. RESOURCES REVIEWED WITH PT AND HE VERBALIZED UNDERSTANDING.
== END 2020-02-29 06:19 | disposition home or self-care (01) ==
LOC: D.ER 05:35
DX: F41.8 Other specified anxiety disorders (principal); I10 Essential (primary) hypertension; Z72.0 Tobacco use

== ENCOUNTER 2020-06-01 10:41 | Day surgery (SDC) | payer MEDICAID ==
[2020-02-29 05:40] VITALS: BMI 39.3
--- NOTE | 2020-06-01 11:09 | NUR ---
PT ARRIVED FOR PROCEDURE, EKG COMPLETED. PT REMAINS IN A-FIB. PT STATES HE ATE BREAKFAST BETWEEN 730 AND 800 AM. ANESTHESIA AND MD NOTIFIED. ORDERS TO CANCEL THE PROCEDURE AND RESCHDULE DUE TO EATING. PT UNDERSTOOD. PT LEFT AMBULATORY. OFFICE NOTIFIED AND THEY WILL CONTACT PT TO RESCHEDULE.
== END 2020-06-01 11:05 | disposition home or self-care (01) ==
LOC: D.CATH 10:41
PROVIDERS: ATTEND Internal Medicine Interventional Cardiology
DX: I48.91 Unspecified atrial fibrillation (principal); Z53.8 Procedure and treatment not carried out for other reasons